=== PATIENT | male | born 1990 | race Caucasian/White ===

== ENCOUNTER 2022-01-24 16:13 | Emergency (ER) | payer MEDICAID ==
[~2022-01-24] VITALS: Ht 172.7 cm; Wt 128.4 kg
[2022-01-24] MEDS ORDERED: ASPirin 81 mg TAB PO ONE (16:30)
[2022-01-24 16:56] LABS: Basophils # (auto) 0.1 10 ^3/uL (0-0.2); Basophils % (auto) 0.5 % (0.0-2.0); Eosinophils # (auto) 0.4 10 ^3/uL (0-0.8); Eosinophils % (auto) 3.4 % (0.0-7.0); Hematocrit 47.5 % (41.0-53.0); Lymphocytes # (auto) 1.9 10 ^3/uL (0.4-5.4); Lymphocytes % (auto) 17.9 % (10.0-50.0); Mean Corpuscular Hemoglobin 29.5 pg (28.0-32.0); Mean Corpuscular Hgb Conc. 33.6 g/dL (32.0-36.0); Mean Corpuscular Volume 87.7 fL (80.0-100.0); Monocytes # (auto) 0.6 10 ^3/uL (0-1.3); Neutrophils # (auto) 7.6 10 ^3/uL (1.6-8.6); Neutrophils % (auto) 72.2 % (37.0-80.0); Red Blood Cells 5.42 10^6/uL (4.5-5.90); Red Cell Distribution Width 12.8 % (11.8-14.3); White Blood Cell 10.5 10^3/uL (4.4-10.8)
[2022-01-24 17:15] LABS: Albumin 4.4 g/dL (3.4-5.0); BUN/Creatinine Ratio 13.9; Calcium 9.7 mg/dL (8.5-10.1); Magnesium 2.4 mg/dL (1.6-2.6); Potassium 3.6 mmol/L (3.5-5.1)
[2022-01-24 17:18] LABS: Bilirubin, Total 0.5 mg/dL (0.2-1.0); Total Protein 8.9 g/dL (6.4-8.2)
[2022-01-24 19:20] VITALS: BP 136/99
== END 2022-01-24 19:24 | disposition home or self-care (01) ==
LOC: ER 16:13
DX: R07.89 Other chest pain (principal); I10 Essential (primary) hypertension; F17.210 Nicotine dependence, cigarettes, uncomplicated
CPT/HCPCS: 36415; 71046; 80053; 83735; 84484; 85025; 93005